=== PATIENT | male | born 1955 | race Caucasian/White ===

== ENCOUNTER 2025-05-31 16:46 | Inpatient (IN) | payer MEDICARE, OTHER ==
[~2025-05-31] VITALS: Ht 182.9 cm; Wt 68.0 kg
[2025-05-31 17:33] LABS: PLATELET COUNT (AUTO) 345 K/uL (150-450); RED BLOOD CELL COUNT(AUTO) 3.53 MIL/uL (4.5-6.0); RED CELL DISTRIBUTION WIDTH 16.4 % (11.5-15.0); WHITE BLOOD COUNT (AUTO) 10.6 K/uL (4.3-11.0)
[2025-05-31 17:40] LABS: CALCIUM, SERUM 9.0 mg/dL (8.5-10.1); CREATININE 2.6 mg/dL (0.6-1.3); SODIUM SERUM 137 mmol/L (136-145); UREA NITROGEN, BLOOD 31 mg/dL (7-18)
[2025-05-31 17:46] LABS: ASPARTATE AMINOTRANSFERASE 9 U/L (15-37); TOTAL PROTEIN, SERUM 8.8 g/dL (6.4-8.2)
[2025-05-31] MEDS ORDERED: POLY17PO4 PO (18:07)
[2025-05-31] MEDS ORDERED: MIDO5TAB4 PO (18:07)
[2025-05-31] MEDS ORDERED: SENN-18 PO (18:07)
[2025-05-31] MEDS ORDERED: TERB30CR8 TP (18:07)
[2025-05-31] MEDS ORDERED: HYDR-4209 PO (18:07)
[2025-05-31] MEDS ORDERED: AMLO5TAB4 PO (18:07)
[2025-05-31] MEDS ORDERED: ACET325T53 PO (18:07)
[2025-05-31] MEDS ORDERED: MELA1TAB47 PO (18:07)
[2025-05-31 18:20] LABS: ALCOHOL, BLOOD < 3 mg/dL (0-10)
[2025-05-31 19:29] LABS: APPEARANCE,URINE CLEAR (CLEAR); BLOOD, URINE Small Ery/uL (NEGATIVE); LEUKOCYTE ESTERASE ,URINE Large (NEGATIVE); UGLUCOSE Negative (NEGATIVE)
[2025-05-31 19:32] LABS: NITRITE, URINE NEGATIVE (NEGATIVE)
[2025-05-31 19:33] LABS: ADD URINE CULTURE YES; CALCIUM OXALATE CRYSTALS,UR Few /HPF (None Seen); SQUAMOUS EPITHELIAL CELL,UR None Seen /HPF (None Seen)
[2025-05-31 19:34] LABS: HYALINE CASTS, URINE Few /LPF (None Seen)
[2025-05-31 19:37] LABS: AMPHETAMINE, URINE NEGATIVE (NEGATIVE); BARBITURATE, URINE NEGATIVE (NEGATIVE); BENZODIAZEPINE, URINE NEGATIVE (NEGATIVE); CANNABINOID, URINE NEGATIVE (NEGATIVE); COCCAINE, URINE NEGATIVE (NEGATIVE); OPIATE, URINE NEGATIVE (NEGATIVE)
[2025-05-31] MEDS ORDERED: POLYETHYLENE GLYCOL 3350 17 GM POWD.PACK PO PRN (20:30)
[2025-05-31] MEDS ORDERED: MIDODRINE HCL (5MG) 5 MG TABLET PO PRN (20:30)
[2025-05-31] MEDS ORDERED: HYDROCODONE/APAP 5/325MG TABLET PO PRN (20:30)
[2025-05-31] MEDS ORDERED: CEPHALEXIN MONOHYDRATE 500 MG CAPSULE PO ONE (21:21)
[2025-05-31] MEDS: CEPHALEXIN MONOHYDRATE 500 MG CAPSULE PO STA (21:24)
[2025-05-31] MEDS ORDERED: Medication Not On Formulary EA (Melatonin 1 MG) PO SCH (22:00)
[2025-05-31] MEDS ORDERED: ACETAMINOPHEN 325 MG TABLET PO PRN (22:30)
[2025-05-31] MEDS ORDERED: ZOLPIDEM TARTRATE 5 MG TABLET PO PRN (22:30)
[2025-05-31] MEDS ORDERED: MAG HYDROX/AL HYDROX/SIMETH 30 ML UDC PO PRN (22:30)
[2025-05-31] MEDS ORDERED: MAGNESIUM HYDROXIDE 30 ML UDC PO PRN (22:30)
[2025-05-31] MEDS: BLOOD SUGAR DIAGNOSTIC 1 EACH STRIP IN ONE (22:31)
[2025-05-31] MEDS: QUETIAPINE FUMARATE 25 MG TABLET PO PRN (22:33)
[2025-05-31 23:02] VITALS: BP 134/87; TEMP 97.8; O2SAT 97
[2025-06-01 07:00] VITALS: BP 113/72; TEMP 98.8; O2SAT 96
[2025-06-01 07:36] LABS: LDL 100 mg/dL (0-99)
[2025-06-01 07:39] LABS: ASPARTATE AMINOTRANSFERASE 8.0 U/L (15-37); CALCIUM, SERUM 9.0 mg/dL (8.5-10.1); CREATININE 2.8 mg/dL (0.6-1.3); SODIUM SERUM 141.0 mmol/L (136-145); TOTAL PROTEIN, SERUM 8.0 g/dL (6.4-8.2); UREA NITROGEN, BLOOD 31.0 mg/dL (7-18)
[2025-06-01] MEDS: AMLODIPINE BESYLATE 5 MG TABLET PO SCH (09:27)
[2025-06-01] MEDS: SENNOSIDES 8.6 MG TABLET PO PRN (09:27)
[2025-06-01] MEDS: TERBINAFINE HCL 250 MG TABLET PO SCH (09:28)
[2025-06-01 16:00] VITALS: BP 143/90; TEMP 98.2; O2SAT 99
[2025-06-01] MEDS ORDERED: CEPH500C2 PO (17:59)
[2025-06-01 20:00] VITALS: BP 138/89; TEMP 98.2; O2SAT 96
[2025-06-01] MEDS: CEPHALEXIN MONOHYDRATE 500 MG CAPSULE PO SCH (21:17)
[2025-06-01] MEDS: ZOLPIDEM TARTRATE 5 MG TABLET PO PRN (21:18)
[2025-06-02 08:00] VITALS: BP 131/84; TEMP 97.7; O2SAT 96
[2025-06-02 08:20] LABS: CREATINE KINASE, TOTAL 111.0 U/L (39-308)
[2025-06-02 08:30] LABS: PLATELET COUNT (AUTO) 367 K/uL (150-450); RED BLOOD CELL COUNT(AUTO) 3.42 MIL/uL (4.5-6.0); RED CELL DISTRIBUTION WIDTH 16.4 % (11.5-15.0); WHITE BLOOD COUNT (AUTO) 11.5 K/uL (4.3-11.0)
[2025-06-02 08:36] LABS: ASPARTATE AMINOTRANSFERASE 13.0 U/L (15-37); CALCIUM, SERUM 9.4 mg/dL (8.5-10.1); CREATININE 3.3 mg/dL (0.6-1.3); PHOSPHORUS 3.9 mg/dL (2.5-4.9); SODIUM SERUM 140.0 mmol/L (136-145); TOTAL PROTEIN, SERUM 9.0 g/dL (6.4-8.2); UREA NITROGEN, BLOOD 35.0 mg/dL (7-18)
[2025-06-02] MEDS: QUETIAPINE FUMARATE 25 MG TABLET PO PRN (13:00)
[2025-06-02 14:34] LABS: APPEARANCE,URINE CLEAR (CLEAR); BLOOD, URINE 1+ Ery/uL (NEGATIVE); LEUKOCYTE ESTERASE ,URINE 3+ (NEGATIVE); NITRITE, URINE NEGATIVE (NEGATIVE); UGLUCOSE NEGATIVE (NEGATIVE)
[2025-06-02 14:49] LABS: CREATININE, URINE 51.3 MG/DL (30.0-125.0); URINE SODIUM, RANDOM 25.0 mmol/l (40-220); URINE TOTAL PROTEIN 54.4 mg/dL (0-11.9)
[2025-06-02 15:02] LABS: ADD URINE CULTURE YES
[2025-06-02 15:43] LABS: EOSINOPHIL,URINE None Seen
[2025-06-02 16:08] VITALS: BP 109/75; TEMP 97.8; O2SAT 94
[2025-06-02 20:53] VITALS: BP 140/94; TEMP 98.8; O2SAT 99
[2025-06-03 08:00] VITALS: BP 129/79; TEMP 98.7; O2SAT 98
[2025-06-03 08:34] VITALS: BP 129/79
[2025-06-03 12:17] LABS: ASPARTATE AMINOTRANSFERASE 7.0 U/L (15-37); CALCIUM, SERUM 9.0 mg/dL (8.5-10.1); CREATININE 2.9 mg/dL (0.6-1.3); PHOSPHORUS 3.9 mg/dL (2.5-4.9); SODIUM SERUM 140.0 mmol/L (136-145); TOTAL PROTEIN, SERUM 8.5 g/dL (6.4-8.2); UREA NITROGEN, BLOOD 37.0 mg/dL (7-18)
[2025-06-03 16:55] LABS: PLATELET COUNT (AUTO) 344 K/uL (150-450); RED BLOOD CELL COUNT(AUTO) 3.76 MIL/uL (4.5-6.0); RED CELL DISTRIBUTION WIDTH 17.5 % (11.5-15.0); WHITE BLOOD COUNT (AUTO) 9.6 K/uL (4.3-11.0)
[2025-06-03] MEDS ORDERED: MAGN400O6 PO (17:59)
[2025-06-03] MEDS ORDERED: MAG30ORA PO (17:59)
[2025-06-03] MEDS ORDERED: QUET25TA PO (17:59)
[2025-06-03] MEDS ORDERED: TERB250T53 PO (17:59)
[2025-06-03] MEDS ORDERED: ZOLP5TAB8 PO (17:59)
[2025-06-04 01:08] LABS: PTH, INTACT 31 pg/mL (15-65)
== END 2025-06-03 15:06 | disposition short-term general hospital (02) | DRG 885 ==
LOC: ER 16:52 → GPS 19:15
PROVIDERS: ADMIT Nurse Practitioner Psychiatric/Mental Health
DX: F39 Unspecified mood [affective] disorder (principal); N18.9 Chronic kidney disease, unspecified; N17.9 Acute kidney failure, unspecified; G93.41 Metabolic encephalopathy; E44.1 Mild protein-calorie malnutrition; N39.0 Urinary tract infection, site not specified; F03.918 Unspecified dementia, unspecified severity, with other behavioral disturbance; F03.92 Unspecified dementia, unspecified severity, with psychotic disturbance; F03.93 Unspecified dementia, unspecified severity, with mood disturbance; F03.911 Unspecified dementia, unspecified severity, with agitation; F29 Unspecified psychosis not due to a substance or known physiological condition; I12.9 Hypertensive chronic kidney disease with stage 1 through stage 4 chronic kidney disease, or unspecified chronic kidney disease; D63.1 Anemia in chronic kidney disease; E88.09 Other disorders of plasma-protein metabolism, not elsewhere classified; G47.20 Circadian rhythm sleep disorder, unspecified type; Z87.820 Personal history of traumatic brain injury; R26.89 Other abnormalities of gait and mobility; R26.9 Unspecified abnormalities of gait and mobility; Z79.899 Other long term (current) drug therapy
CPT/HCPCS: 36415; 71045-TC; 76770-TC; 80048-TC; 80053-TC; 80061-TC; 80076-TC; 81001; 82550-TC; 82570-TC; 83735-TC; 83970; 84100-TC; 84155; 84165; 84300-TC; 84443-TC; 85025-TC; 87081-TC; 87086-TC; 97110-TC; 97116-TC; 97530-TC; G0480

== ENCOUNTER 2025-06-03 15:34 | Inpatient (IN) | payer MEDICARE, OTHER ==
[~2025-06-03] VITALS: Ht 182.9 cm; Wt 70.1 kg
[~2025-06-03 15:34] MED LIST: ACET325T53 PO; AMLO5TAB4 PO; CEPH500C2 PO; HYDR-4209 PO; MELA1TAB47 PO; MIDO5TAB4 PO; POLY17PO4 PO; SENN-18 PO; TERB30CR8 TP
[2025-06-03] MEDS ORDERED: MAG30ORA PO (17:59)
[2025-06-03] MEDS ORDERED: QUET25TA PO (17:59)
[2025-06-03] MEDS ORDERED: MAGN400O6 PO (17:59)
[2025-06-03] MEDS ORDERED: TERB250T53 PO (17:59)
[2025-06-03] MEDS ORDERED: ZOLP5TAB8 PO (17:59)
[2025-06-03 22:00] VITALS: BP 125/75; TEMP 98; TEMP 98.1; O2SAT 99
[2025-06-03] MEDS ORDERED: ZOLPIDEM TARTRATE 5 MG TABLET PO PRN (22:30)
[2025-06-03] MEDS ORDERED: Z GUARD REMEDY 4 OZ OINT TP PRN (22:30)
[2025-06-03] MEDS ORDERED: ACETAMINOPHEN 325 MG TABLET PO PRN (22:30)
[2025-06-03] MEDS ORDERED: MAG HYDROX/AL HYDROX/SIMETH 30 ML UDC PO PRN (22:30)
[2025-06-03] MEDS ORDERED: QUETIAPINE FUMARATE 25 MG TABLET PO PRN (22:30)
[2025-06-03] MEDS ORDERED: SENNOSIDES 8.6 MG TABLET PO PRN (22:30)
[2025-06-03] MEDS ORDERED: MAGNESIUM HYDROXIDE 30 ML UDC PO PRN (22:30)
[2025-06-03] MEDS ORDERED: ONDANSETRON HCL/PF 4 MG/2 ML VIAL IVP PRN (22:30)
[2025-06-04] MEDS ORDERED: POLYETHYLENE GLYCOL 3350 17 GM POWD.PACK PO PRN (02:30)
[2025-06-04] MEDS ORDERED: HYDROCODONE/APAP 5/325MG TABLET PO PRN (02:30)
[2025-06-04 07:29] LABS: PLATELET COUNT (AUTO) 348 K/uL (150-450); RED BLOOD CELL COUNT(AUTO) 3.29 MIL/uL (4.5-6.0); RED CELL DISTRIBUTION WIDTH 16.3 % (11.5-15.0); WHITE BLOOD COUNT (AUTO) 7.9 K/uL (4.3-11.0)
[2025-06-04 07:42] LABS: CALCIUM, SERUM 9.1 mg/dL (8.5-10.1); CREATININE 3.2 mg/dL (0.6-1.3); PHOSPHORUS 4.2 mg/dL (2.5-4.9); SODIUM SERUM 141.0 mmol/L (136-145); UREA NITROGEN, BLOOD 40.0 mg/dL (7-18)
[2025-06-04 08:00] VITALS: BP 167/90; TEMP 98.2; O2SAT 96
[2025-06-04] MEDS ORDERED: LIDOCAINE 2% JEL 5 ML TUBE MC ONE (08:00)
[2025-06-04] MEDS: CEPHALEXIN MONOHYDRATE 500 MG CAPSULE PO SCH (08:44)
[2025-06-04] MEDS: PANTOPRAZOLE 40 MG TABLET.DR PO SCH (08:44)
[2025-06-04] MEDS: TERBINAFINE HCL 250 MG TABLET PO SCH (08:44)
[2025-06-04] MEDS: AMLODIPINE BESYLATE 5 MG TABLET PO SCH (08:44)
[2025-06-04 10:00] VITALS: BP 155/85
[2025-06-04] MEDS: LIDOCAINE 2% JEL UROJET 10 ML MM ONE (10:19)
[2025-06-04] MEDS ORDERED: QUETIAPINE FUMARATE 25 MG TABLET PO PRN (14:00)
[2025-06-04 18:12] VITALS: BP 128/80; TEMP 98.2; O2SAT 96
[2025-06-04 20:00] VITALS: BP 130/77; TEMP 98.3; O2SAT 100
[2025-06-04] MEDS: TAMSULOSIN 0.4 MG CAP.SR.24H PO SCH (21:13)
[2025-06-05 07:40] LABS: PLATELET COUNT (AUTO) 366 K/uL (150-450); RED BLOOD CELL COUNT(AUTO) 3.75 MIL/uL (4.5-6.0); RED CELL DISTRIBUTION WIDTH 16.3 % (11.5-15.0); WHITE BLOOD COUNT (AUTO) 6.7 K/uL (4.3-11.0)
[2025-06-05 08:00] VITALS: BP 129/88; TEMP 97.5; O2SAT 98
[2025-06-05 08:19] LABS: CALCIUM, SERUM 9.4 mg/dL (8.5-10.1); CREATININE 3.0 mg/dL (0.6-1.3); SODIUM SERUM 140.0 mmol/L (136-145); UREA NITROGEN, BLOOD 37.0 mg/dL (7-18)
[2025-06-05 11:19] LABS: PLATELET COUNT (AUTO) 331 K/uL (150-450); RED BLOOD CELL COUNT(AUTO) 3.57 MIL/uL (4.5-6.0); RED CELL DISTRIBUTION WIDTH 16.5 % (11.5-15.0); WHITE BLOOD COUNT (AUTO) 6.0 K/uL (4.3-11.0)
[2025-06-05 11:35] LABS: CALCIUM, SERUM 9.0 mg/dL (8.5-10.1); CREATININE 3.1 mg/dL (0.6-1.3); SODIUM SERUM 140.0 mmol/L (136-145); UREA NITROGEN, BLOOD 34.0 mg/dL (7-18)
[2025-06-05] MEDS ORDERED: MIDODRINE HCL (5MG) 5 MG TABLET PO PRN (17:00)
[2025-06-05] MEDS ORDERED: ZOLPIDEM TARTRATE 5 MG TABLET PO PRN (17:00)
[2025-06-05] MEDS ORDERED: QUETIAPINE FUMARATE 25 MG TABLET PO PRN (17:00)
[2025-06-05] MEDS ORDERED: SENNOSIDES 8.6 MG TABLET PO PRN (17:00)
[2025-06-05] MEDS ORDERED: MAGNESIUM HYDROXIDE 30 ML UDC PO PRN (17:00)
[2025-06-05 20:00] VITALS: BP 123/76; TEMP 97.9; O2SAT 95
[2025-06-05] MEDS: TAMSULOSIN 0.4 MG CAP.SR.24H PO SCH (21:44)
[2025-06-06 07:18] LABS: PLATELET COUNT (AUTO) 356 K/uL (150-450); RED BLOOD CELL COUNT(AUTO) 3.27 MIL/uL (4.5-6.0); RED CELL DISTRIBUTION WIDTH 15.9 % (11.5-15.0); WHITE BLOOD COUNT (AUTO) 6.2 K/uL (4.3-11.0)
[2025-06-06 07:43] LABS: CALCIUM, SERUM 9.2 mg/dL (8.5-10.1); CREATININE 2.9 mg/dL (0.6-1.3); SODIUM SERUM 144.0 mmol/L (136-145); UREA NITROGEN, BLOOD 33.0 mg/dL (7-18)
[2025-06-06] MEDS ORDERED: AMLODIPINE BESYLATE 5 MG TABLET PO SCH (09:00)
[2025-06-06] MEDS ORDERED: TERBINAFINE HCL 250 MG TABLET PO SCH (09:00)
[2025-06-06 20:00] VITALS: BP 134/71; TEMP 98.1; O2SAT 99
[2025-06-07 07:34] LABS: CALCIUM, SERUM 9.2 mg/dL (8.5-10.1); CREATININE 2.9 mg/dL (0.6-1.3); SODIUM SERUM 143.0 mmol/L (136-145); UREA NITROGEN, BLOOD 35.0 mg/dL (7-18)
[2025-06-07 07:43] LABS: PLATELET COUNT (AUTO) 365 K/uL (150-450); RED BLOOD CELL COUNT(AUTO) 3.59 MIL/uL (4.5-6.0); RED CELL DISTRIBUTION WIDTH 16.1 % (11.5-15.0); WHITE BLOOD COUNT (AUTO) 6.4 K/uL (4.3-11.0)
[2025-06-07] MEDS: MORPHINE SULFATE INJ 2 MG/ML DISP.SYRIN IV ONE (11:31)
[2025-06-07 11:33] VITALS: BP 132/89; TEMP 98.3; O2SAT 99
[2025-06-07] MEDS: LORAZEPAM INJ 2 MG/ML VIAL IV ONE (11:33)
[2025-06-07 11:48] VITALS: BP 139/92; TEMP 98.2; O2SAT 98
[2025-06-07 12:03] VITALS: BP 135/89; TEMP 98.2; O2SAT 98
[2025-06-07 12:18] VITALS: BP 140/92; TEMP 98.4; O2SAT 98
[2025-06-07 12:33] VITALS: BP 153/81; TEMP 98.5; O2SAT 98
[2025-06-07 19:15] VITALS: BP 122/74; TEMP 98.8; O2SAT 98
[2025-06-08 06:30] VITALS: BP 136/89; TEMP 98.1; O2SAT 96
[2025-06-08 07:36] VITALS: BP 137/90; TEMP 97.9; O2SAT 98
[2025-06-08 07:48] LABS: CALCIUM, SERUM 9.2 mg/dL (8.5-10.1); CREATININE 2.8 mg/dL (0.6-1.3); SODIUM SERUM 142.0 mmol/L (136-145); UREA NITROGEN, BLOOD 35.0 mg/dL (7-18)
[2025-06-08 10:07] VITALS: BP 135/86
[2025-06-08] MEDS ORDERED: TAMS-12 PO (13:27)
== END 2025-06-08 17:20 | DRG 689 ==
LOC: MED 15:34 → TELE 06-07 11:25 → MED 06-07 19:30
PROVIDERS: ADMIT Registered Nurse Psychiatric/Mental Health; ATTEND Internal Medicine
DX: N13.6 Pyonephrosis (principal); G93.41 Metabolic encephalopathy; F03.911 Unspecified dementia, unspecified severity, with agitation; F03.93 Unspecified dementia, unspecified severity, with mood disturbance; F03.92 Unspecified dementia, unspecified severity, with psychotic disturbance; Z16.12 Extended spectrum beta lactamase (ESBL) resistance; N17.9 Acute kidney failure, unspecified; D64.9 Anemia, unspecified; Z79.899 Other long term (current) drug therapy; D63.1 Anemia in chronic kidney disease; I12.9 Hypertensive chronic kidney disease with stage 1 through stage 4 chronic kidney disease, or unspecified chronic kidney disease; N18.9 Chronic kidney disease, unspecified; Z87.820 Personal history of traumatic brain injury; Z73.6 Limitation of activities due to disability; I95.1 Orthostatic hypotension; F39 Unspecified mood [affective] disorder; F29 Unspecified psychosis not due to a substance or known physiological condition; R26.9 Unspecified abnormalities of gait and mobility; R33.9 Retention of urine, unspecified
CPT/HCPCS: 36415; 80048-TC; 83735-TC; 84100-TC; 85025-TC; 87081-TC; G0378; J2060; J2270; J3490